=== PATIENT | male | born 1950 | race Caucasian/White ===

== ENCOUNTER → 2018-09-18 | Outpatient (CLI) | payer MEDICARE ==
--- NOTE | 2018-09-18 12:40 | CT ---
EXAMINATION TYPE: CT abdomen wo con DATE OF EXAM: 09/18/2018 COMPARISON: None HISTORY: 67-year-old male polycystic kidney disease TECHNIQUE: Contiguous axial scanning of the abdomen without IV contrast. Coronal and sagittal reconst ructions performed. CT DLP: 793 mGycm Automated exposure control for dose reduction was used. FINDINGS: Heart normal size without pericardial effusion. Tiny hiatal hernia. Lung bases clear without pleural effusion. Mildly aneurysmal aorta at the thoracoabdominal junction 3.1 cm. Noncontrast appearance of the liver, gallbladder, left adrenal gland, spleen with tiny hilar splenule , and pancreas show no gross abnormality. Probable ingested debris within the stomach. No dilated small bowel, free fluid, or free air. Normal appendix. Scattered mild stool throughout the colon without pericolonic inflammatory change. No mesenteric or retroperitoneal lymphadenopathy seen. Replaced, multicystic, enlarged bilateral kidneys. No evident hydronephrosis. Cysts in the right kidn ey measuring up to 8.0 cm. cyst in the left kidney measure up to 7.2 cm. In the midpole, there is a 1 cm rounded higher density lesion probably representing a hemorrhagic or proteinaceous cyst. The lack of IV contrast limits assessment for any enhancing solid masses. There is a mixed fat and soft tissue density lesion in the right adrenal gland measuring 2.9 cm. The pelvis is not imaged. Bones: Degenerative disc disease and facet arthropathy mid to lower lumbar spine. Changes result in s evere right-sided neural foraminal stenosis at L4-L5 and moderate at additional levels mid to lower l umbar spine. IMPRESSION: 1. THE LACK OF IV CONTRAST LIMITS ASSESSMENT FOR ENHANCING SOLID MASSES. NO OBVIOUS SUSPICIOUS RENAL LESION THOUGH NUMEROUS LESIONS ARE PRESENT ALL OF WHICH PROBABLY REPRESENT CYSTS MEASURING UP TO 8.0 CM. AT LEAST ONE IN THE LEFT MIDPOLE MEASURES 1 CM AND HAS HIGHER DENSITY, PROBABLY A HEMORRHAGIC OR PROTEINACEOUS CYST. 2. IF THE PATIENT CANNOT RECEIVE IV CONTRAST AND THERE IS EITHER PERSISTENT CLINICAL CONCERN FOR A LE FT RENAL MASS OR FOLLOW-UP IS DESIRED, CONSIDER THE UTILITY OF MRI WITH THE ADDITION OF DIFFUSION SEQ UENCES. 3. BENIGN 2.9 CM RIGHT ADRENAL MYELOLIPOMA.
== END ==
LOC: RADCTMAIN 11:04
PROVIDERS: ATTEND Urology
DX: D41.02 Neoplasm of uncertain behavior of left kidney (principal); Z88.2 Allergy status to sulfonamides
CPT/HCPCS: 74150

== ENCOUNTER → 2022-12-25 | Outpatient (CLI) | payer MEDICARE ==
--- NOTE | 2022-12-25 10:13 | CT ---
EXAMINATION TYPE: CT abdomen pelvis wo con CT DLP: 1374.20 mGycm, Automated exposure control for dose reduction was used. DATE OF EXAM: 12/25/2022 9:50 AM COMPARISON: CT abdomen 09/18/2018 . CLINICAL INDICATION:Male, 72 years old with history of Q61.3 polycystic kidney disease; Polycystic Ki dney Disease TECHNIQUE: Standard CT of the abdomen and pelvis without IV or oral contrast. Lack of IV or oral co ntrast limits evaluation of solid and hollow organ viscera. Coronal and sagittal reformats were perfo rmed. FINDINGS: LOWER CHEST: Lung bases are clear. Mild coronary arterial calcifications. ABDOMEN LIVER: Unremarkable noncontrast appearance. GALLBLADDER AND BILE DUCTS: Unremarkable. PANCREAS: Unremarkable noncontrast appearance. SPLEEN: Unremarkable noncontrast appearance. ADRENAL GLANDS: Multiple noncontrast appearance of the left adrenal gland.. Stable mixed fat and soft tissue density lesion within the right adrenal gland measuring up to 2.6 cm. KIDNEYS AND URETERS: Replaced, multicystic, enlarged bilateral kidneys redemonstrated. No hydronephro sis and demonstrate a. Largest cyst within the right kidney measures up to 9.3 cm. Largest cyst withi n the left kidney measures up to 7.4 cm. In the midpole left kidney is a stable 1.1 cm hypodensity le pierce probably representing a hemorrhagic or proteinaceous cyst. There is a hyperattenuating region wi thin the mid right kidney measuring 5.3 x 3.9 cm (series 3, image 44). There is some right perinephri c fascial thickening with stranding identified which is new from prior examination. Additional trace perinephric fluid identified in this region. PELVIS BLADDER: Under distended, limiting evaluation. REPRODUCTIVE: Unremarkable. ABDOMEN & PELVIS STOMACH AND BOWEL: Small hiatal hernia, duodenum is unremarkable. Distal colonic diverticulosis witho ut evidence for acute diverticulitis. No acute inflammatory changes involving the appendix. A few grace endicoliths identified. No evidence of bowel obstruction. PERITONEUM: No evidence of pneumoperitoneum or free fluid. VASCULATURE: No evidence of aortic aneurysm. MUSCULOSKELETAL: No acute osseous abnormalities. No aggressive osseous lesion. Scoliotic curvature of the lumbar spine. Mild multilevel degenerative changes of the visualized spine. LYMPH NODES: No gross evidence for lymphadenopathy. SOFT TISSUE/ABDOMINAL WALL: Bilateral fat filled inguinal hernias. IMPRESSION: Limited examination due to lack of intravenous contrast. 1. New hyperdense 5.3 x 3.9 cm lesion within the mid right kidney with surrounding trace fluid and f ascial thickening/fat stranding. This may represent a hemorrhagic/proteinaceous cyst with rupture hitesh dimas underlying renal neoplasm. Further evaluation with CT or MR abdomen renal mass protocol with IV c ontrast is recommended. If patient cannot receive IV contrast. Follow-up examination with at least re nal ultrasound should be performed. 2. Stable 1.1 cm left mid pole hyperdense lesion favored to represent a hemorrhagic/pronation cyst. 3. Stable benign right adrenal myelolipoma.
== END | disposition home or self-care (01) ==
LOC: RADCTMAIN 09:33
PROVIDERS: ATTEND Internal Medicine
DX: Q61.3 Polycystic kidney, unspecified (principal); D17.79 Benign lipomatous neoplasm of other sites; N28.89 Other specified disorders of kidney and ureter
CPT/HCPCS: 74176

== ENCOUNTER → 2023-04-18 | Outpatient (CLI) | payer MEDICARE ==
--- NOTE | 2023-04-21 09:38 | MR ---
EXAMINATION TYPE: MR abdomen wo/w con DATE OF EXAM: 04/18/2023 9:46 AM INDICATION: Patient age:Male; 72 years old; Reason for study: RIGHT KIDNEY MASS,N18.9 CKD, N28.89. Abnormal CT COMPARISON: CT scan abdomen from 12/25/2022. TECHNIQUE: Multiplanar multi-sequence imaging was performed without contrast. Post contrast imaging was performed. Post IV contrast subtraction images were also submitted for review. IV Contrast: 11 cc Gadavist FINDINGS: LOWER CHEST: No gross irregularity. ABDOMEN Liver: Scattered high T2 foci do not enhance throughout the liver compatible with cysts. No evidence for hepatic steatosis or cirrhosis. Gallbladder and Bile ducts: No biliary dilation or stricture. The gallbladder is within normal limits . Pancreas: Unremarkable. Spleen: Small splenule is present. Adrenal glands: Right adrenal gland 3.8 x 2.7 cm myelolipoma. The left adrenal glands unremarkable. Kidneys: There are bilateral high T2 signal renal cysts present which are simple appearing. Intrinsic high T1 signal lesions bilaterally the largest on the right measuring 1.9 cm and on the lef t measuring 2.2 cm. Postcontrast imaging does not clearly demonstrate enhancement. Findings most comp atible with proteinaceous/hemorrhagic renal cysts. Stomach and Bowel: The appendix is normal. No evidence of bowel wall thickening or bowel obstruction. Peritoneum: No evidence of pneumoperitoneum or free fluid. Vasculature: Unremarkable. No aortic aneurysm. Musculoskeletal: The osseous structures appear intact. Scoliosis changes to the spine. Lymph Nodes: No gross evidence for lymphadenopathy. Abdominal wall: Unremarkable. IMPRESSION: 1. Bilateral Bosniak type I and type II renal cysts. No suspicious masses. 2. Right adrenal myelolipoma. 3. No evidence for acute process.
== END | disposition home or self-care (01) ==
LOC: RADMRIMAIN 08:38
PROVIDERS: ATTEND Radiology Diagnostic Radiology
DX: N28.89 Other specified disorders of kidney and ureter (principal); N18.9 Chronic kidney disease, unspecified; D17.79 Benign lipomatous neoplasm of other sites; N28.1 Cyst of kidney, acquired
CPT/HCPCS: 74183; A9585

== ENCOUNTER → 2023-08-28 | Outpatient (CLI) | payer MEDICARE ==
--- NOTE | 2023-08-28 13:28 | MR ---
EXAMINATION TYPE: MR kidney wo/w con DATE OF EXAM: 08/28/2023 9:20 AM CLINICAL INDICATION:Male, 72 years old with history of N28.89 OTHER SPECIFIED DISORDERS OF KIDNEY AND URE; PHH, Renal cysts, left renal mass. Recent ablation performed. COMPARISON: CT scan abdomen from 12/25/2022. TECHNIQUE: Multiplanar multi-sequence imaging was performed without contrast. Post contrast imaging was performed. Post IV contrast subtraction images were also submitted for review. IV Contrast: 12 cc Gadavist FINDINGS: LOWER CHEST: No gross irregularity. ABDOMEN Liver: No evidence for hepatic steatosis or cirrhosis. Right hepatic lobe nonenhancing cyst. Gallbladder and Bile ducts: No evidence for ductal dilation, or biliary stricture or evidence of chol edocholithiasis. The gallbladder is within normal limits. Pancreas: No ductal dilation. No evidence for solid mass. Spleen: Normal for size. Adrenal glands: Right adrenal nodule measuring 39 x 27 mm which is high T1/T2 signal has signal dropo ut on chemical shift of phase imaging. It also has signal dropout on fat saturation. Finding most fav ored to represent myolipoma. No left adrenal mass. Kidneys: Right: Multiple simple appearing high T2 renal cysts are seen throughout the right kidney the largest measuring up to 9.3 cm. Low T2 higher T1 signal cysts measuring 13 mm compatible with hemorrhagic/pr oteinaceous cyst. No Suspicious enhancing masses. Left: Multiple simple appearing high T2 renal cysts are seen throughout the left kidney the largest m easuring up to 7.7 cm. There is a high T1 and low T2 signal cyst in the left kidney measuring up to 2 0 mm compatible with hemorrhagic/proteinaceous cyst versus post ablation change. No Suspicious enhanc ing masses. Stomach and Bowel: No evidence for bowel wall thickening or evidence for obstruction.. Peritoneum: No evidence of pneumoperitoneum or free fluid. Vasculature: No aortic aneurysm. Musculoskeletal: The osseous structures appear intact. Scoliosis changes of the spine with multilevel degeneration changes. Lymph Nodes: No gross evidence for lymphadenopathy. Abdominal wall: Unremarkable. IMPRESSION: 1. Polycystic kidneys with bilateral proteinaceous/hemorrhagic cysts. No suspicious enhancing renal masses. 2. Right adrenal myelolipoma.
== END | disposition home or self-care (01) ==
LOC: RADMRIMAIN 08:00
PROVIDERS: ATTEND Radiology Diagnostic Radiology
DX: Q61.3 Polycystic kidney, unspecified (principal); D35.01 Benign neoplasm of right adrenal gland; N28.89 Other specified disorders of kidney and ureter
CPT/HCPCS: 74183; A9585

== ENCOUNTER → 2024-02-27 | Outpatient (CLI) | payer MEDICARE ==
--- NOTE | 2024-02-27 12:57 | MR ---
EXAMINATION TYPE: MR abdomen wo/w con DATE OF EXAM: 02/27/2024 9:55 AM CLINICAL INDICATION:Male, 73 years old with history of C642 MALIGNANT NEOPLASM OF LEFT KIDNEY,; PHH, Renal cancer. COMPARISON: 04/18/2023, 1-24r TECHNIQUE: Multiplanar multi-sequence imaging was performed without contrast. Post contrast imaging was performed. Post IV contrast subtraction images were also submitted for review. IV Contrast: 11 cc Gadavist FINDINGS: LOWER CHEST: No gross irregularity. ABDOMEN Liver: No evidence for hepatic steatosis or cirrhosis. Right hepatic lobe nonenhancing cyst. Gallbladder and Bile ducts: No evidence for ductal dilation, or biliary stricture or evidence of chol edocholithiasis. The gallbladder is within normal limits. Pancreas: No ductal dilation. No evidence for solid mass. Spleen: Normal for size. Adrenal glands: Right adrenal nodule measuring 39 x 27 mm which is high T1/T2 signal has signal dropo ut on chemical shift of phase imaging. It also has signal dropout on fat saturation. Finding most fav ored to represent myolipoma. No left adrenal mass. Kidneys: Right: Redemonstration of multiple simple appearing high T2 renal cysts are seen throughout the right kidney the largest measuring up to 10 cm. low T2 higher T1 signal cysts measuring 13 mm compatible with hem orrhagic/proteinaceous cyst. No Suspicious enhancing masses. Left: Multiple simple appearing high T2 renal cysts are seen throughout the left kidney the largest m easuring up to 8.4 cm. Other high T1 and low T2 signal cyst in the left kidney measuring up to 20 mm compatible with hemorrhagic/proteinaceous cyst versus post ablation change. No Suspicious enhancing m asses. Stomach and Bowel: No evidence for bowel wall thickening or evidence for obstruction.. Peritoneum: No evidence of pneumoperitoneum or free fluid. Vasculature: No aortic aneurysm. Musculoskeletal: The osseous structures appear intact. Scoliosis changes of the spine with multilevel degeneration changes. Lymph Nodes: No gross evidence for lymphadenopathy. Abdominal wall: Unremarkable. IMPRESSION: 1. Similar Polycystic kidneys with bilateral proteinaceous/hemorrhagic cysts. No suspicious enhancin g renal masses. 2. Right adrenal myelolipoma.
== END | disposition home or self-care (01) ==
LOC: RADMRIMAIN 08:36
PROVIDERS: ATTEND Radiology Diagnostic Radiology
DX: C64.2 Malignant neoplasm of left kidney, except renal pelvis (principal); Q61.3 Polycystic kidney, unspecified; D17.79 Benign lipomatous neoplasm of other sites
CPT/HCPCS: 74183; A9585

== ENCOUNTER → 2025-02-25 | Outpatient (CLI) | payer MEDICARE ==
--- NOTE | 2025-02-28 18:55 | MR ---
EXAMINATION TYPE: MR abdomen wo/w con DATE OF EXAM: 02/25/2025 9:30 AM INDICATION: Patient age:Male; 74 years old; Reason for study: C64.9 renal ca; PHH. COMPARISON: MR abdomen 02/27/2024, 04/18/2023, MR kidney 08/28/2023, CT abdomen pelvis 12/25/2022, CT abdome n 09/18/2018 TECHNIQUE: Multiplanar multi-sequence imaging was performed without and with IV contrast. The patie nt was given 11 ccs of Gadobutrol intravenously and dynamic imaging was performed. Post IV contrast s ubtraction images were also submitted for review. FINDINGS: LOWER CHEST: No gross irregularity. ABDOMEN Liver: No evidence for hepatic steatosis or cirrhosis. Right hepatic lobe nonenhancing cyst. Gallbladder and Bile ducts: No evidence for ductal dilation, or biliary stricture or evidence of chol edocholithiasis. The gallbladder is within normal limits. Pancreas: No ductal dilation. No evidence for solid mass. Spleen: Normal for size. Adrenal glands: Right adrenal nodule measuring 2.6 cm. Demonstrates T1/T2 hyperintensity with regions of signal dropout on out of phase imaging. Demonstrates thin peripheral enhancement. Left adrenal gl and is unremarkable. Kidneys: Right: Redemonstration of multiple simple nonenhancing thin-walled high T2 renal cysts throughout the right kidney. The largest measures up to 10 cm again within the upper pole. Couple of small intrinsic T1 hy perintense nonenhancing proteinaceous/hemorrhagic cysts identified with largest measuring up to 1 cm. No suspicious enhancing masses. Overall appearance is similar to prior exam. Left: Redemonstration of multiple simple nonenhancing thin-walled high T2 renal cysts throughout the left k idney. The largest measures up to 7.7 cm. Few small intrinsic T1 hyperintense nonenhancing proteinace ous hemorrhagic cysts redemonstrated with the left kidney. Largest measures up to 2.1 cm. No suspicio us enhancing masses. Overall appearance is similar to prior exam. Stomach and Bowel: No evidence for bowel wall thickening or evidence for obstruction.. Peritoneum: No evidence of pneumoperitoneum or free fluid. Vasculature: No aortic aneurysm. Musculoskeletal: The osseous structures appear intact. Scoliosis changes of the spine with multilevel degeneration changes. Lymph Nodes: No gross evidence for lymphadenopathy. Abdominal wall: Unremarkable. IMPRESSION: 1. Similar polycystic kidneys with Bosniak type I and type II renal cyst. The majority of the renal cysts demonstrating a simple appearance. A few bilateral cysts are consistent with proteinaceous/hemo rrhagic cysts. No suspicious enhancing renal masses. 2. Right adrenal myelolipoma is unchanged. [facility], , 02/28/2025 6:52 PM
== END | disposition home or self-care (01) ==
LOC: RADMRIMAIN 08:37
PROVIDERS: ATTEND Radiology Diagnostic Radiology
DX: C64.9 Malignant neoplasm of unspecified kidney, except renal pelvis (principal); N28.1 Cyst of kidney, acquired; D17.79 Benign lipomatous neoplasm of other sites
CPT/HCPCS: 74183; A9585